=== PATIENT | female | born 1960 | race Two or more races ===

== ENCOUNTER → 2023-12-20 | Outpatient (CLI) | payer OTHER ==
--- NOTE | 2023-12-20 09:59 | USB ---
Reason for Exam: Clinical finding. Patient History: Menarche at age 12. First Full-Term at age 19. Hysterectomy at age 33. Postmenopausal. Risk Values: Candi 5 year model risk: 1.4%. NCI Lifetime model risk: 5.8%. Technique: Method: Targeted. Findings: The upper outer quadrant of the left breast, the axilla of the left breast and the retroareolar of the left breast were scanned. Solid mass with posterior acoustic shadowing and irregular margins at the left 12:00 position 4 cm from the nipple measuring 6 x 7 mm. Ultrasound-guided core biopsy is recommended.. No adenopathy is appreciated. No additional lesions seen. Overall Assessment: Highly suggestive of malignancy, BI-RAD 5 Management: Ultrasound Core Biopsy of the left breast. A clinical breast exam by your physician is recommended on an annual basis and results should be correlated with mammographic findings. This exam should not preclude additional follow-up of suspicious palpable abnormalities. Results were given to the patient verbally at the time of exam. Electronically signed and approved by: Ezio Mendoza M.D. Radiologis
--- NOTE | 2023-12-20 11:28 | MM ---
Reason for Exam: Clinical finding. Baseline mammogram. Indicated Problems: Lump or thickening of the left side for 2 Week(s). Patient History: Menarche at age 12. First Full-Term at age 19. Hysterectomy at age 33. Postmenopausal. Risk Values: Candi 5 year model risk: 1.4%. NCI Lifetime model risk: 5.8%. Prior Study Comparison: Patient's first Mammogram. Tissue Density: The breast tissue is heterogeneously dense. This may lower the sensitivity of mammography. Findings: Analyzed By CAD. Spiculated mass upper outer quadrant measuring approximately 9 mm on mammography 5 cm from the nipple is highly suspicious for malignancy. No additional masses seen within either breast. No suspicious calcifications evident. Ultrasound recommended. Overall Assessment: Highly suggestive of malignancy, BI-RAD 5 Management: Ultrasound-Guided Core Biopsy of the left breast. . Results were given to the patient verbally at the time of exam. Patient should continue monthly self-breast exams. A clinical breast exam by your physician is recommended on an annual basis. This exam should not preclude additional follow-up of suspicious palpable abnormalities. Note on Candi scores and lifetime risk: 1. A Candi score greater than 3% is considered moderate risk. If this is the case, consider specialist referral to assess eligibility for a risk reducing agent. 2. If overall lifetime risk for the development of breast cancer is 20% or higher, the patient may qualify for future screening with alternating mammogram and breast MRI. Electronically signed and approved by: Ezio Mendoza M.D. Radiologis
== END | disposition home or self-care (01) ==
LOC: RADMAMWWP 08:40
PROVIDERS: ATTEND Family Medicine
DX: N63.21 Unspecified lump in the left breast, upper outer quadrant (principal); R92.333 Mammographic heterogeneous density, bilateral breasts; Z78.0 Asymptomatic menopausal state
CPT/HCPCS: 77066; 76642; G0279; 77062

== ENCOUNTER → 2024-01-09 | Day surgery (SDC) | payer OTHER ==
--- NOTE | 2024-01-13 11:11 | MM ---
Reason for Exam: Post Procedure Mammogram. Last screening mammogram was performed less than 1 month ago. Patient History: Menarche at age 12. First Full-Term at age 19. Hysterectomy at age 33. Postmenopausal. Risk Values: Candi 5 year model risk: 1.4%. NCI Lifetime model risk: 5.8%. Prior Study Comparison: 12/20/2023 Bilateral MG 3D diag mammo w/cad [facility], [facility]. Tissue Density: Left: The breast tissue is heterogeneously dense. This may lower the sensitivity of mammography. Pathology Description: Location: 12 o'clock. Marker Left Behind. Needle Type: Mammotome Cores: 5 Skin Nicks: 1 Gauge: 13 The procedure of ultrasound guided core biopsy was explained to the patient. Benefits, alternatives, and risks were discussed. An informed consent was then obtained. A timeout was performed. The patient was placed in supine positioning for imaging and for the procedure. The overlying skin was prepped and draped in usual sterile fashion. Lidocaine was used as anesthetic into the skin and subcutaneous tissue up to area of concern in the left breast. A small skin dajuan was made with surgical scalpel. Under ultrasound guidance, a 12-gauge vacuum assisted biopsy gun device was used to obtain 5 core samples. A biopsy clip was left in lesion. Hydromark opened coil core marker was placed. The patient tolerated the procedure well without any immediate complication. The patient was kept in the radiology department for short stay after the procedure and then discharged home in stable condition. Postprocedure mammogram: The patient was transferred to mammography for physician ordered post procedure mammogram for clip placement verification. Impression: Successful ultrasound guided core biopsy of area of concern in the left breast, full pathology results to follow. Recommendations: 1. Recommendations are pending pathology results. Pathology Results: Result: Malignant, Invasive lobular carcinoma. LEFT BREAST, TWELVE O'CLOCK, ULTRASOUND GUIDED NEEDLE CORE BIOPSY: Invasive lobular carcinoma. See Surgical Pathology Cancer Case Summary and Comment. Overall Assessment: Malignant Assessment: MG diagnostic mammo LT wo CAD. - Left: Known biopsy proven malignancy, BI-RAD 6. Management: Surgical Consultation of the left breast. Electronically signed and approved by: Bladimir Flores D.O. Radiologis
== END ==
LOC: RADUSWWP 09:38
PROVIDERS: ATTEND Surgery
DX: C50.912 Malignant neoplasm of unspecified site of left female breast (principal)
CPT/HCPCS: 88305; 88342; 88341; 77065; 19083; A4648

== ENCOUNTER → 2024-01-13 | Outpatient (CLI) | payer OTHER ==
--- NOTE | 2024-01-13 15:10 | P.GSHP ---
History of Present Illness H&P Date: 01/13/24 Chief Complaint: invasive lobular cancer left breast T1N0M0 ER+RI+Her2-G2 Yamile is a 63 year old female seen in consultation for Dr. Gay who had a bilateral mammogram on 12-20-23. This led to a left breast ultrasound and biopsy. The biopsy was done on 01-09-24 and was (+) for an invasive lobular cancer. [id number]+Pr+Her2-. She did not feel any lumps masses or nodules of concern in either breast prior to her mammogram. She has not had any surgery on her breast. She has not had any recent trauma or infection in the breast. She is not complaining of any nipple discharge or skin changes. Caffeine: 2 cups/day nicotine: 1PPD/40 years chocolate: occasional BCP: none hormones: none Family History: none for cancer Hormonal History: menarche: 12 menopause: hysterectomy at 33; left ovaries no cancer Surgical History: hysterectomy Medical History: none Social History: nicotine: 1 PPD alcohol: none drugs: none - Constitutional Constitutional: Denies chills, Denies fever - EENT Eyes: denies blurred vision, denies pain Ears: deny: decreased hearing, tinnitus Ears, nose, mouth and throat: Denies headache, Denies sore throat - Breasts Breasts: bilateral: as per HPI - Cardiovascular Cardiovascular: Denies chest pain, Denies shortness of breath - Respiratory Respiratory: Reports as per HPI, Denies cough - Gastrointestinal Gastrointestinal: Denies abdominal pain, Denies diarrhea, Denies nausea, Denies vomiting - Genitourinary (Female) Genitourinary: Denies dysuria, Denies hematuria - Menstruation Menstruation: Reports postmenopausal - Musculoskeletal Musculoskeletal: Denies myalgias - Integumentary Integumentary: Denies pruritus, Denies rash - Neurological Neurological: Denies numbness, Denies weakness - Psychiatric Psychiatric: Denies anxiety, Denies depression - Endocrine Endocrine: Denies fatigue, Denies weight change - Hematologic/Lymphatic Comment: none - Allergic/Immunologic Allergic/Immunologic: Reports as per HPI Past Medical History Past Medical History: No Reported History History of Any Multi-Drug Resistant Organisms: None Reported Past Surgical History: Hysterectomy Past Anesthesia/Blood Transfusion Reactions: No Reported Reaction Additional Past Anesthesia/Blood Transfusion Reaction / Comment(s): DIFFICULTY WAKING Past Psychological History: No Psychological Hx Reported Smoking Status: Current every day smoker Medications and Allergies Home Medications Medication Instructions Recorded Confirmed Type Ascorbic Acid [Vitamin C] 500 mg PO DAILY 12/21/23 01/13/24 History Ibuprofen [Advil] 200 mg PO Q6HR PRN 12/21/23 01/13/24 History Omeprazole Magnesium [PriLOSEC OTC] 20 mg PO DAILY PRN 12/21/23 01/13/24 History Allergies Allergy/AdvReac Type Severity Reaction Status Date / Time No Known Allergies Allergy Verified 01/13/24 14:53 Surgical - Exam Vital Signs Temp Pulse Resp BP Pulse Ox 98.0 F 80 16 145/81 97 01/13/24 14:53 01/13/24 14:53 01/13/24 14:53 01/13/24 14:53 01/13/24 14:53 - General no distress - Eyes normal ocular movement - Neck trachea midline - Respiratory normal respiratory effort, clear to auscultation - Cardiovascular Rhythm: regular Heart Sounds: normal: S1, S2 - Abdomen Abdomen: soft, non tender, no guarding, no rigid, no rebound - Integumentary normal turgor - Neurologic no disoriented, no combative - Musculoskeletal normal gait - Psychiatric oriented to time, oriented to person, oriented to place, speech is normal, memory intact Breast Exam: BRA: 36C Inspection: Bilateral grade 2 ptosis Palpation: Right breast: Multi positional exam no dominant masses or nodules of concern Right axilla: No adenopathy of concern Left breast: Multi positional exam no dominant masses or nodules of concern, biopsy site upper outer quadrant no evidence of hematoma or infection Left axilla: No adenopathy of concern Results Mammogram and ultrasound reviewed Assessment and Plan Assessment: Impression: Stage I invasive lobular carcinoma left breast Plan: Presentation of case at tumor board Will discuss treatment options with the patient and her family CC: Dr. Gant
[2024-01-13 15:21] VITALS: BP 145/81; PULSE 80; RESP 16; TEMP 98
== END ==
LOC: WWCWWP 13:34
PROVIDERS: ATTEND Surgery
DX: C50.912 Malignant neoplasm of unspecified site of left female breast (principal); F17.210 Nicotine dependence, cigarettes, uncomplicated; Z17.0 Estrogen receptor positive status [ER+]

== ENCOUNTER → 2024-01-31 | Outpatient (CLI) | payer OTHER ==
--- NOTE | 2024-01-31 13:11 | BMR ---
EXAM DATE: 01/31/2024 EXAM DESCRIPTION: MRI-Breast Bilat (W/WO Contrast) INDICATION: Recently diagnosed carcinoma presenting for staging COMPARISON: Comparison is made with relevant prior imaging in PACS. CONTRAST: 6.0 cc of Gadavist TECHNIQUE: Multiplanar MRI imaging of both breasts was performed with a dedicated breast coil, before and after intravenous administration of gadolinium contrast, using the standard breast mass protocol. Computer-aided detection was used to aid in interpretation. Study was performed at [facility] with Radiologic interpretation by [facility]. FINDINGS: General breast composition: The breast is heterogeneously dense Background parenchymal enhancement: Mild FINDINGS: Right Breast: Review of the dynamic contrast-enhanced series shows no rapidly enhancing masses, suspicious enhancement patterns or other abnormalities. The T2 weighted series shows no abnormality. No enlarged lymph nodes. Left Breast: Review of the dynamic contrast-enhanced series shows irregular enhancing mass with spiculated margins measuring 1.0 x 1.0 by 1.1 cm in the upper slightly outer breast at posterior depth, there is a susceptibility artifact along the posterior margin of the mass at the site of biopsy clip. No enlarged lymph nodes. IMPRESSION: Right Breast: BI-RADS Category1- Negative No MRI evidence of malignancy. Recommendation: Return to routine screening. Left Breast: BI-RADS Category 6- Known biopsy proven malignancy 1. 1 cm irregular mass with biopsy clip in-situ at the site of known malignancy in the upper outer breast. 2. No MRI evidence of lymphadenopathy. Recommendation: Surgical oncologic consult OVERALL ASSESSMENT -- BI-RADS 6 MTDD
== END | disposition home or self-care (01) ==
LOC: RADMRIMAIN 08:00
PROVIDERS: ATTEND Surgery
DX: C50.412 Malignant neoplasm of upper-outer quadrant of left female breast (principal); N63.10 Unspecified lump in the right breast, unspecified quadrant
CPT/HCPCS: C8908; A9585; 77049

== ENCOUNTER → 2024-02-23 | Outpatient (CLI) | payer OTHER ==
[2024-02-23 11:34] VITALS: BP 131/71; PULSE 69; RESP 17; TEMP 98.1
--- NOTE | 2024-02-23 11:38 | P.BCPN ---
Subjective Progress Note Date: 02/23/24 History of Present Illness H&P Date: 02-23-24 Chief Complaint: invasive lobular cancer left breast T1N0M0 ER+MS+Her2-G2 Yamile is a 63 year old female seen in consultation for Dr. Meza who had a bilateral mammogram on 12-20-23. This led to a left breast ultrasound and biopsy. The biopsy was done on 01-09-24 and was (+) for an invasive lobular cancer. [id number]+Pr+Her2-. She did not feel any lumps masses or nodules of concern in either breast prior to her mammogram. She has not had any surgery on her breast. She has not had any recent trauma or infection in the breast. She is not complaining of any nipple discharge or skin changes. MRI done on 01-31-24 only area of concern known cancer in the left breast, about 1 by 1 cm lesion tumor board on 01-17-24 Caffeine: 2 cups/day nicotine: 1PPD/40 years chocolate: occasional BCP: none hormones: none Family History: none for cancer Hormonal History: menarche: 12 menopause: hysterectomy at 33; left ovaries no cancer Surgical History: hysterectomy Medical History: none Social History: nicotine: 1 PPD alcohol: none drugs: none - Constitutional Constitutional: Denies chills, Denies fever - EENT Eyes: denies blurred vision, denies pain Ears: deny: decreased hearing, tinnitus Ears, nose, mouth and throat: Denies headache, Denies sore throat - Breasts Breasts: bilateral: as per HPI - Cardiovascular Cardiovascular: Denies chest pain, Denies shortness of breath - Respiratory Respiratory: Reports as per HPI, Denies cough - Gastrointestinal Gastrointestinal: Denies abdominal pain, Denies diarrhea, Denies nausea, Denies vomiting - Genitourinary (Female) Genitourinary: Denies dysuria, Denies hematuria - Menstruation Menstruation: Reports postmenopausal - Musculoskeletal Musculoskeletal: Denies myalgias - Integumentary Integumentary: Denies pruritus, Denies rash - Neurological Neurological: Denies numbness, Denies weakness - Psychiatric Psychiatric: Denies anxiety, Denies depression - Endocrine Endocrine: Denies fatigue, Denies weight change - Hematologic/Lymphatic Comment: none - Allergic/Immunologic Allergic/Immunologic: Reports as per HPI Past Medical History Past Medical History: No Reported History History of Any Multi-Drug Resistant Organisms: None Reported Past Surgical History: Hysterectomy Past Anesthesia/Blood Transfusion Reactions: No Reported Reaction Additional Past Anesthesia/Blood Transfusion Reaction / Comment(s): DIFFICULTY WAKING Past Psychological History: No Psychological Hx Reported Smoking Status: Current every day smoker Medications and Allergies Home Medications Medication Instructions Recorded Confirmed Type Ascorbic Acid [Vitamin C] 500 mg PO DAILY 12/21/23 01/13/24 History Ibuprofen [Advil] 200 mg PO Q6HR PRN 12/21/23 01/13/24 History Omeprazole Magnesium [PriLOSEC OTC] 20 mg PO DAILY PRN 12/21/23 01/13/24 History Allergies Allergy/AdvReac Type Severity Reaction Status Date / Time No Known Allergies Allergy Verified 01/13/24 14:53 Objective - Vital Signs Vital Signs: Vital Signs Temp 98.1 F 02/23/24 11:16 Pulse 69 02/23/24 11:16 Resp 17 02/23/24 11:16 BP 131/71 02/23/24 11:16 Pulse Ox 96 02/23/24 11:16 FiO2 Intake & Output 02/22/24 02/23/24 02/23/24 18:59 06:59 18:59 Weight 64.41 kg - Constitutional General appearance: Present: cooperative - EENT Eyes: Present: EOMI ENT: Present: hearing grossly normal - Neck Neck: Present: normal ROM - Breast Bra Size: 36C Ptosis: Grade 2: Right Breast Ptosis, Left Breast Ptosis Breast: both: normal (left breast bx site clean ) Right Breast Palpation (Multi-positional): No dominant masses, No nodules of concerns, Fibrocystic Changes Left Breast Palpation (Multi-positional): No dominant masses, No nodules of concerns, Fibrocystic Changes Right Axilla Palpation: No adenopathy of concern Left Axilla Palpation: No adenopathy of concern - Respiratory Respiratory: bilateral: CTA - Cardiovascular Heart sounds: normal: S1, S2 - Integumentary Integumentary: Present: normal turgor - Musculoskeletal Musculoskeletal: Present: gait normal - Psychiatric Psychiatric: Present: A&O x's 3, appropriate affect, intact judgment & insight - Additional findings Additional findings: Breast Exam: BRA: 36C Inspection: Bilateral grade 2 ptosis Palpation: Right breast: Multi positional exam no dominant masses or nodules of concern Right axilla: No adenopathy of concern Left breast: Multi positional exam no dominant masses or nodules of concern, biopsy site upper outer quadrant no evidence of hematoma or infection Left axilla: No adenopathy of concern Assessment and Plan Assessment: Impression: Stage I invasive lobular carcinoma left breast MRI of breast on 01-31-24 only lesion known in left breast noted presented at tumor board on 01-17-24, discussed photon therapy with Dr. Velasco not recommended Plan: Presentation of case at tumor board done 01-17-24 left breast needle localization lumpectomy with possible oncoplastic tissue transfer, left sentinal node injection, left sentinal node biopsy possible left aillary node resection clearance dr. Gant CC: Dr. Gant Prep Education Provided - Preoperative Education Given Pre-Op Kit Given Date: 02/23/24 (education to stop smoking) - Functional Assessment Performed?: Yes (30 sec chair sit; > 12) Referal Provided?: No - Smoking Cessation Education Provided?: Yes
== END ==
LOC: WWCWWP 10:13
PROVIDERS: ATTEND Surgery
DX: R92.8 Other abnormal and inconclusive findings on diagnostic imaging of breast (principal); C50.912 Malignant neoplasm of unspecified site of left female breast; L98.8 Other specified disorders of the skin and subcutaneous tissue; F17.200 Nicotine dependence, unspecified, uncomplicated; Z17.0 Estrogen receptor positive status [ER+]

== ENCOUNTER → 2024-03-02 | Outpatient (CLI) | payer OTHER ==
--- NOTE | 2024-03-02 11:12 | CA ---
Stress Echo Report Yamile Burns Age: 63 Gender: F : 1960 Exam Date: 03/02/2024 09:44 Exam Location: [facility] Ht (in): 64 Wt (lb): 130 Ordering Physician: Franny Gant MD Referring Physician: HOMERO,, Clinique Counter Manager: RAUL Technologist Procedure CPT: Indication: R00.1 Sinus Bradycardia R94.31 Abnormal EKG ICD-9 Codes: Rhythm: Patient History: ABN ECG, CURRENT SMOKER 0.75 PPD X 46 YEARS Cardiac Medications: Medications in past 24 hours: Contrast: Stress Results Protocol: Jd Total dose(mL): Exercise Duration (min:sec): 7:[address] Depression (mm): Angina Score: Kirk Score: METS: 9.1 Resting HR: 84 Resting BP: 126 / 79 Peak HR: 155 Peak BP: 185 / 64 Max Predicted HR: 156 99 % Max Predicted HR Target HR: 133 Double Product: [id number] Stress Summary: BP Response: Reason for Termination: MAX EXERTION/TARGET HR Cardiac Symptoms: NO SYMPTOMS ECG Analysis Resting ECG: Normal sinus rhythm normal axis normal intervals Stress ECG: Patient exercised on Dj protocol for 7 and half minutes achieving 85% of predicted maximal heart rate without chest pain or diagnostic ST segment depression Arrhythmia: Echo Analysis Resting Echo: Normal left ventricular size wall motion systolic function Peak Echo Analysis: Normal hyperdynamic response of all segments of myocardium MEASUREMENTS (Male/Female) Normal Values CONCLUSIONS Above-average exercise tolerance Negative stress test by EKG criteria Negative stress echo Dr. Gaston Rosado MD (Electronically Signed) Final Date: 02 March 2024 11:11
== END | disposition home or self-care (01) ==
LOC: RADNMMAIN 09:08
PROVIDERS: ATTEND Family Medicine
DX: R00.1 Bradycardia, unspecified (principal); R94.31 Abnormal electrocardiogram [ECG] [EKG]
CPT/HCPCS: 93351

== ENCOUNTER 2024-03-06 11:20 | Day surgery (SDC) | payer SELFPAY ==
[2024-03-01 14:25] VITALS: BMI 24.7
[~2024-03-06 11:20] MED LIST: ALPRAZolam 0.5 MG TAB PO PRN; MIDAZOLAM 2 MG/2 ML VIAL IV PRN; ONDANSETRON 4 MG/2 ML VIAL IVP ONE
[2024-03-06 12:00] VITALS: RESP 16
[2024-03-06] MEDS: LACTATED RINGERS 1,000 ML IV SCH (12:01)
[2024-03-06] MEDS: ONDANSETRON 4 MG/2 ML VIAL ONE (12:01)
[2024-03-06] MEDS: DEXAMETHASONE SOD PHOSPHATE 4 MG/ML 1 ML VIAL IV ONE (12:01)
[2024-03-06] MEDS: ACETAMINOPHEN TAB 500 MG TAB PO PRN (12:01)
[2024-03-06] MEDS: LIDOCAINE 1% INJ 10MG/ML (20 ML MDV) SQ ONE (13:07)
[2024-03-06] MEDS: HEPARIN SODIUM,PORCINE 5,000 UNIT/ML 1 ML VIAL SQ PRN (14:02)
--- NOTE | 2024-03-06 14:33 | P.NAPBC ---
NAPBC Queries - NAPBC Queries Was patient's case review presented at [facility] tumor board? If no, comment.: Yes Was patient's pathology reviewed at [facility]? If no, comment.: Yes Was breast conservation surgery offered? If no, comment.: Yes Was sentinel node biopsy offered? If no, comment.: Yes Was diagnosis confirmed by percutaneous core biopsy? If no, comment.: Yes Is patient mastectomy patient?: No Was a preop referral to reconstructive surgeon offered?: No Clinical Stage: invasive lobluar left breast stage I [id number]+Pr+Her2-
[2024-03-06] MEDS ORDERED: SUCCINYLCHOLINE CHLORIDE 200 MG/10 ML VIAL IV ONE (14:48)
[2024-03-06] MEDS ORDERED: fentaNYL (PF) 50 MCG/ML 2 ML AMP ONE (14:48)
[2024-03-06] MEDS ORDERED: MIDAZOLAM 2 MG/2 ML VIAL ONE (14:48)
[2024-03-06] MEDS ORDERED: LIDOCAINE 1% INJ 10MG/ML (20 ML MDV) ONE (14:48)
[2024-03-06] MEDS ORDERED: PROPOFOL 10 MG/ML 20 ML VIAL IV ONE (14:48)
[2024-03-06] MEDS: IV FLUID CONTINUATION 1,000 ML IV ONE (16:26)
[2024-03-06] MEDS: LIDOCAINE 1% (10MG/ML) FOR IV START INTRADERMA PRN (16:29)
[2024-03-06 17:08] VITALS: TEMP 96.8
--- NOTE | 2024-03-06 17:14 | P.BCAON ---
Date of Procedure: 03/06/24 Preoperative Diagnosis: invasive lobular cancer left breast Postoperative Diagnosis: same Procedure(s) Performed: left breast needle localization lumpectomy, oncoplastic tissue transfer 41 CM2, sential node biopsy Anesthesia: MJA Surgeon: Eda Velez Estimated Blood Loss (ml): 25 Urine output (ml): 800 Pathology: other (breast and azillary tissue) Condition: stable Disposition: same day Indications for Procedure: left breast cancer lobular Operative Findings: dense breast tissue Description of Procedure: The patient was taken to the operating room. Following induction of anesthis the betty-probe was used to interogate the axilla. There was radioactivity noted. The left breast and axilla were prepped and draped in the usual fashion. Using the area of greatest radioactivity oj gail neoprobe and incision was made in the axilla. The tissue was grasped with and germania clamp.. It was disected free, and the radioactive tisuse was resected. The 10 second count was 1852, the backgrund count was 29 at 10 seconds. No other nodes of concern were noted.. Gail would was irrigated. The deep tissues were closed using 3-0 vicryl. The skin was closed with 4-0 monocryl. The bresat was approached. An incision was made and carried down to hte hook of hte needle. Surrounding tissue was excised. The tissue was painted for orientation. Posterior dissection was onto the pect muscle. THe lesion was 4 by 4 cm. Rdiograph of hte specimen showed the lesion of conern and the clip were in the specimen. A superior pillar 5 by 3 cm was formed. An inferior pillar 2 by 5 cm was formed. These were brought together using 3-0 vicryl. Total tissue 41 cm squared. Surgicel in powder form was placed. The deep tissue were closed using 3-0 vicryl. The skin was closed using 4-0 monocryl. 10 cc of 1% lidocian was injected into the incision. Patient tolerated procedure in stable condition. - Sentinal Node Biopsy Operation performed with curative intent: Yes Tracer(s) used in upfront surgery (non-neoadjuvant): radioactive tracer All significantly radioactive nodes were removed: Yes All palpably suspicious nodes were removed: Yes Clipped positive nodes identified and removed: N/A
[2024-03-06] MEDS: HYDROmorphone 0.5 MG/0.5 ML SYRINGE IVP PRN (17:24)
[2024-03-06] MEDS: HYDROmorphone 0.5 MG/0.5 ML SYRINGE IVP ONE (17:26)
[2024-03-06 18:29] VITALS: BP 163/77; PULSE 70
--- NOTE | 2024-03-07 11:21 | NM ---
EXAMINATION TYPE: NM sentinel node injection DATE OF EXAM: 03/06/2024 COMPARISON: NONE CLINICAL INDICATION: Female, 63 years old with history of LEFT BREAST; TECHNIQUE AND FINDINGS: The procedure of sentinel lymph node injection was explained to the patient. The benefits, alternatives, and risks were discussed. An informed consent was then obtained. Overlying skin is cleaned with sterile alcohol. Following this, 490 uCi [id number] Tilmanocept was inject ed in the upper outer aspect of the left nipple intradermally. The patient tolerated the procedure well without any immediate complication. The patient was kept in the radiology department for short stay after the procedure and then taken to surgery for surgical p rocedure what is presumed intraoperative gamma probe will be used for sentinel lymph node detection. IMPRESSION: Left breast radiotracer injection for sentinel node localization as above.
--- NOTE | 2024-03-14 09:44 | MM ---
Reason for Exam: Follow-up at short interval from prior study. Last screening mammogram was performed 2 month(s) ago. Patient History: Menarche at age 12. First Full-Term at age 19. Hysterectomy at age 33. Postmenopausal. Breast cancer, left, age 63. 01/09/2024, Malignant US biopsy breast VAD LT on the left side. Prior Study Comparison: 12/20/2023 Bilateral MG 3D diag mammo w/cad [facility], [facility]. 01/09/2024 Left MG diagnostic mammo LT wo CAD., [facility]. Tissue Density: Left: The breasts are heterogeneously dense, which may obscure small masses. Pathology Description: Location: 12 o'clock. Needle Type: 5 cm Kopan Informed consent was obtained and all the patient's questions were answered. The lesion in question was localized sonographically. The standard sterile technique was utilized, as well as appropriate local anesthesia with 1% Lidocaine. Localization needle followed by placement of a guidewire was performed under sonographic guidance. Verification images demonstrate appropriate deployment of the guidewire. The patient tolerated the procedure well and left the department in stable condition. Specimen radiograph demonstrates the clip and mass in question to reside within the specimen. IMPRESSION: Successful needle localization and open biopsy left breast with pathology results pending. Pathology Results: Result: Malignant, Invasive lobular carcinoma. Pathology and radiology were reviewed. Findings are concordant. A. LEFT BREAST, LUMPECTOMY: Invasive lobular carcinoma, margins negative for malignancy. Background fibrocystic changes, previous biopsy site, lobular neoplasia (ALH/ LCIS) and focal atypical ductal hyperplasia (ADH) not involving the margins. See Surgical Pathology Cancer Case Summary and Comment. B. LEFT BREAST, NEW INFERIOR MARGIN ,EXCISION: Lobular neoplasia (ALH/LCIS) and fibrocystic changes. Negative for invasive malignancy. C. LEFT BREAST, NEW ANTERIOR MARGIN, EXCISION: Benign breast and fibroadipose tissue. D. SENTINEL LYMPH NODE, BIOPSY: Four lymph nodes negative for metastases. CK7 immunstain performed on block D1, VIDHYA immunostain performed on block D2, CKAE1/3 immunostain performed on block D3 and CAM 5.2 immunostain performed on block D4 are confirmatory (controls appropriate). Overall Assessment: Malignant Assessment: MG diagnostic mammo LT wo CAD. - Left: Known biopsy proven malignancy, BI-RAD 6. Management: Surgical Consultation of the left breast. Diagnostic Mammogram of the left breast in 6 months. Electronically signed and approved by: Ezio Mendoza M.D. Radiologis
== END 2024-03-06 18:35 | disposition home or self-care (01) ==
LOC: OR 11:20
PROVIDERS: ATTEND Surgery
DX: D05.02 Lobular carcinoma in situ of left breast (principal); F17.200 Nicotine dependence, unspecified, uncomplicated; Z90.710 Acquired absence of both cervix and uterus; Z79.899 Other long term (current) drug therapy
CPT/HCPCS: 19301; 38500; 88305; 88342; 88307; 88341; 77065; 76098; 76999; 19285; 38792; C1819; A9520; J2250; J0330; J1644; J1100; J0690; J2405; J2001; J3010; J2704; J1170

== ENCOUNTER → 2024-03-15 | Outpatient (CLI) | payer OTHER ==
--- NOTE | 2024-03-15 11:12 | P.BCPO ---
Progress Note - Text Progress Note Date: 03/15/24 Ivka post left breast lumpectomy and sentinel node biopsy on 03-06-2024. Her pathology revealed a millimeter invasive lobular carcinoma. All margins were negative for invasive cancer. The distance from invasive cancer to the closest margin was 2 mm from the anterior lateral margin. The patient had 4 lymph nodes removed all were negative for tumor. The patient's lumpectomy revealed invasive lobular carcinoma, background fibrocystic changes, previous biopsy site, lobular neoplasia atypical lobular hyperplasia/lobular carcinoma in situ and focal atypical ductal hyperplasia not involving the margins. The patient is doing well postoperatively. Examination: Lungs: Clear Heart: Regular rate and rhythm Incision axilla and breast clean and dry Impression: patient doing well Plan: appointment radiation oncology appointment medical oncology follow up here in 4 months CC: Dr. Gant Post Op Education - Post Op Education Post Op Education Provided Date: 03/15/24 - Functional Assessment Performed?: Yes (arm mobility) Referal Provided?: No Path Report - Was patient given path report? Path Report Date Given: 03/15/24
== END ==
LOC: WWCWWP 10:39
PROVIDERS: ATTEND Surgery
DX: Z04.89 Encounter for examination and observation for other specified reasons (principal); N60.12 Diffuse cystic mastopathy of left breast; N60.89 Other benign mammary dysplasias of unspecified breast; Z48.817 Encounter for surgical aftercare following surgery on the skin and subcutaneous tissue; D05.02 Lobular carcinoma in situ of left breast

== ENCOUNTER → 2024-03-22 | Outpatient (CLI) | payer OTHER ==
--- NOTE | 2024-03-22 11:23 | P.CON ---
Consult Note - . Consult date: 03/22/24 Assessment/Plan:: 03/15/24 Yamile post left breast lumpectomy and sentinel node biopsy on 03-06-2024. Her pathology revealed a 9 millimeter invasive lobular carcinoma. All margins were negative for invasive cancer. The distance from invasive cancer to the closest margin was 2 mm from the anterior lateral margin. The patient had 4 lymph nodes removed all were negative for tumor. The patient's lumpectomy revealed invasive lobular carcinoma, background fibrocystic changes, previous biopsy site, lobular neoplasia atypical lobular hyperplasia/lobular carcinoma in situ and focal atypical ductal hyperplasia not involving the margins. The patient is doing well postoperatively. Examination: Lungs: Clear Heart: Regular rate and rhythm Incision axilla and breast clean and dry; small seroma left breast Impression: patient doing well Following informed consent the area of the left breast was prepped using alcohol. An 18-gauge needle and a 20 cc syringe was used to aspirate 25 cc of fluid. This appeared to be complete resolution of the seroma. The fluid was dark in nature. No evidence of any infection. Plan: Follow up sooner any questions or concerns appointment radiation oncology appointment medical oncology follow up here in 4 months CC: Dr. Gant
[2024-03-22 11:26] VITALS: BP 133/86; PULSE 78; RESP 18; TEMP 98.4
== END ==
LOC: WWCWWP 10:39
PROVIDERS: ATTEND Surgery
DX: Z04.89 Encounter for examination and observation for other specified reasons (principal); C50.912 Malignant neoplasm of unspecified site of left female breast; N62 Hypertrophy of breast; N60.12 Diffuse cystic mastopathy of left breast; L76.33 Postprocedural seroma of skin and subcutaneous tissue following a dermatologic procedure; Z48.817 Encounter for surgical aftercare following surgery on the skin and subcutaneous tissue; Z98.890 Other specified postprocedural states; Z17.1 Estrogen receptor negative status [ER-]

== ENCOUNTER → 2024-04-05 | Outpatient (CLI) | payer OTHER ==
--- NOTE | 2024-04-05 09:52 | P.CON ---
Consult Note - . Consult date: 04/05/24 Assessment/Plan:: Yamile is status post left breast lumpectomy and sentinel node biopsy on 03-06-2024. Her pathology revealed a 9 millimeter invasive lobular carcinoma. All margins were negative for invasive cancer. The distance from invasive cancer to the closest margin was 2 mm from the anterior lateral margin. The patient had 4 lymph nodes removed all were negative for tumor. The patient's lumpectomy revealed invasive lobular carcinoma, background fibrocystic changes, previous biopsy site, lobular neoplasia atypical lobular hyperplasia/lobular carcinoma in situ and focal atypical ductal hyperplasia not involving the margins. The patient is doing well postoperatively. Complaints at this time. Examination: Lungs: Clear Heart: Regular rate and rhythm Incision axilla and breast clean and dry; no evident recurrent seroma Impression: patient doing well Plan: Follow up sooner any questions or concerns appointment radiation oncology appointment medical oncology follow up here in 4 months CC: Dr. Gant
[2024-04-05 10:13] VITALS: BP 148/67; PULSE 75; RESP 17; TEMP 98
== END ==
LOC: WWCWWP 08:38
PROVIDERS: ATTEND Surgery
DX: Z48.817 Encounter for surgical aftercare following surgery on the skin and subcutaneous tissue (principal); N60.12 Diffuse cystic mastopathy of left breast; N60.92 Unspecified benign mammary dysplasia of left breast; Z85.3 Personal history of malignant neoplasm of breast; Z98.890 Other specified postprocedural states

== ENCOUNTER → 2024-05-16 | Outpatient (CLI) | payer OTHER ==
[2024-05-16 14:59] VITALS: BP 130/80; PULSE 72; RESP 18; TEMP 97.7
--- NOTE | 2024-05-16 15:22 | P.CON ---
Consult Note - . Consult date: 05/16/24 Assessment/Plan:: 05-16-24 Yamile is status post left breast lumpectomy and sentinel node biopsy on 03-06-2024. Her pathology revealed a 9 millimeter invasive lobular carcinoma. All margins were negative for invasive cancer. The distance from invasive cancer to the closest margin was 2 mm from the anterior lateral margin. The patient had 4 lymph nodes removed all were negative for tumor. The patient's lumpectomy revealed invasive lobular carcinoma, background fibrocystic changes, previous biopsy site, lobular neoplasia atypical lobular hyperplasia/lobular carcinoma in situ and focal atypical ductal hyperplasia not involving the margins. The patient is doing well postoperatively. The patient states 3 weeks ago she did some gardening work and clipping of bushes and working and [place]. After that she developed some swelling of her left forearm. Minimally tender but she is more concerned because it is swollen. She is not complaining of any changes in her breast or axilla. Examination: Lungs: Clear Heart: Regular rate and rhythm Incision axilla and breast clean and dry; no evident recurrent seroma; does have some mild swelling of the left forearm Impression: patient doing well Plan: Follow up sooner any questions or concerns appointment radiation oncology to start radiation next week appointment medical oncology follow up here in July 2024 appointment with physical therapy CC: Dr. Gant
== END ==
LOC: WWCWWP 14:22
PROVIDERS: ATTEND Surgery
DX: Z48.817 Encounter for surgical aftercare following surgery on the skin and subcutaneous tissue (principal); N62 Hypertrophy of breast; M79.89 Other specified soft tissue disorders; Z85.3 Personal history of malignant neoplasm of breast

== ENCOUNTER → 2024-07-19 | Outpatient (CLI) | payer OTHER ==
--- NOTE | 2024-07-19 09:49 | P.PN ---
Subjective Progress Note Date: 07/19/24 invasive lobular cancer left breast [id number] Yamile is a 63 year old female seen in consultation for Dr. Meza who had a bilateral mammogram on 12-20-23. This led to a left breast ultrasound and biopsy. The biopsy was done on 01-09-24 and was (+) for an invasive lobular cancer. [id number]+Her2-. She did not feel any lumps masses or nodules of concern in either breast prior to her mammogram. She has not had any surgery on her breast. She has not had any recent trauma or infection in the breast. She is not complaining of any nipple discharge or skin changes. MRI done on 01-31-24 only area of concern known cancer in the left breast, about 1 by 1 cm lesion tumor board on 01-17-24 The patient on 03-06-24 underwent a left breast lumpectomy and SNB. This revealed a 9 mm invasive lobular cancer. All margins were (-). 4 nodes removed all (-). She was seen by radiation oncology on 04-06-24, she was interested in proton therapy. She does not have insurance and has not been able to receive radiation. She also did not have hormone therapy. She states she had a referral on March 19, 2024 but did not see them because she did not want to have chemotherapy. Caffeine: 2 cups/day nicotine: 1PPD/40 years chocolate: occasional BCP: none hormones: none Family History: none for cancer Hormonal History: menarche: 12 menopause: hysterectomy at 33; left ovaries no cancer Surgical History: hysterectomy Medical History: none Social History: nicotine: 1 PPD alcohol: none drugs: none - Constitutional Constitutional: Denies chills, Denies fever - EENT Eyes: denies blurred vision, denies pain Ears: deny: decreased hearing, tinnitus Ears, nose, mouth and throat: Denies headache, Denies sore throat - Breasts Breasts: bilateral: as per HPI - Cardiovascular Cardiovascular: Denies chest pain, Denies shortness of breath - Respiratory Respiratory: Reports as per HPI, Denies cough - Gastrointestinal Gastrointestinal: Denies abdominal pain, Denies diarrhea, Denies nausea, Denies vomiting - Genitourinary (Female) Genitourinary: Denies dysuria, Denies hematuria - Menstruation Menstruation: Reports postmenopausal - Musculoskeletal Musculoskeletal: Denies myalgias - Integumentary Integumentary: Denies pruritus, Denies rash - Neurological Neurological: Denies numbness, Denies weakness - Psychiatric Psychiatric: Denies anxiety, Denies depression - Endocrine Endocrine: Denies fatigue, Denies weight change - Hematologic/Lymphatic Comment: none - Allergic/Immunologic Allergic/Immunologic: Reports as per HPI Past Medical History Past Medical History: No Reported History History of Any Multi-Drug Resistant Organisms: None Reported Past Surgical History: Hysterectomy Past Anesthesia/Blood Transfusion Reactions: No Reported Reaction Additional Past Anesthesia/Blood Transfusion Reaction / Comment(s): DIFFICULTY WAKING Past Psychological History: No Psychological Hx Reported Smoking Status: Current every day smoker Medications and Allergies Home Medications Medication Instructions Recorded Confirmed Type Ascorbic Acid [Vitamin C] 500 mg PO DAILY 12/21/23 01/13/24 History Ibuprofen [Advil] 200 mg PO Q6HR PRN 12/21/23 01/13/24 History Omeprazole Magnesium [PriLOSEC OTC] 20 mg PO DAILY PRN 12/21/23 01/13/24 History Allergies Allergy/AdvReac Type Severity Reaction Status Date / Time No Known Allergies Allergy Verified 01/13/24 14:53 Objective - Constitutional General appearance: Present: cooperative - EENT Eyes: Present: EOMI ENT: Present: hearing grossly normal - Neck Neck: Present: normal ROM - Respiratory Respiratory: bilateral: CTA - Cardiovascular Heart sounds: normal: S1, S2 - Integumentary Integumentary: Present: normal turgor - Musculoskeletal Musculoskeletal: Present: gait normal - Psychiatric Psychiatric: Present: A&O x's 3, appropriate affect, intact judgment & insight - Additional findings Additional findings: Breast Exam: BRA: 38C Inspection: Well-healed scar left breast Palpation: Right breast: Multi positional exam fibrocystic changes no dominant masses or nodules of concern Right axilla: No adenopathy of concern Left breast: Well-healed scar from prior surgery, no dominant masses or nodules of concern Multi positional exam Left axilla: No adenopathy of concern Assessment and Plan Assessment: Impression: Patient's status post left breast lumpectomy sentinel node biopsy for invasive lobular carcinoma Patient did not have radiation therapy secondary to no insurance, and did not follow with medical oncology secondary to concerns about not wanting chemotherapy I have personally called Lorena our nurse navigator and the patient is going to be referred to social work Shireen Plan: Attempt at appointment for medical oncology with possible hormone therapy We will refer to work/Shireen regarding possible radiation therapy Patient is due for a repeat bilateral mammogram in December 2024 appointment in two months Patient daughter is attempting to work out her medical insurance, and the patient should be eligible for Medicare September,. Cc: Dr. Gay
[2024-07-19 11:00] VITALS: BP 120/79; PULSE 78; RESP 18; TEMP 97.8
== END ==
LOC: WWCWWP 09:18
PROVIDERS: ATTEND Surgery
DX: Z48.817 Encounter for surgical aftercare following surgery on the skin and subcutaneous tissue (principal); C50.912 Malignant neoplasm of unspecified site of left female breast; F17.210 Nicotine dependence, cigarettes, uncomplicated; Z17.0 Estrogen receptor positive status [ER+]